=== PATIENT | male | born 1955 | race African-American/Black ===

== ENCOUNTER 2019-02-28 06:17 | Inpatient (IN) | payer MEDICARE, MEDICAID ==
--- NOTE | 2019-02-28 13:32 | HP ---
CHIEF COMPLAINT: [facility]. HISTORY OF PRESENT ILLNESS: Mr. Hernandez is a 63-year-old gentleman, who has a history of mental retardation and resides in a nursing facility. He is essentially nonverbal at baseline and does have some contractures as well. The history is extremely limited, but apparently he was found unresponsive and was noted to have seizure-like activity at the nursing facility. He was reported he had three seizures, which were about 20 to 30 seconds, then also an additional seizure was witnessed by EMS. He was brought to the emergency room and a CT scan of the brain was performed and it did not show any acute abnormality, but on chest x-ray he had some findings in the right lung which could be considered to be an infiltrate or atelectasis. He was also hypothermic and his white blood cell count is elevated. Urinalysis also showed findings consistent with urinary tract infection. He is being admitted for further treatment. REVIEW OF SYSTEMS: Unobtainable as the patient is aphasic. He is awake and alert, however. PAST MEDICAL HISTORY: Significant for mental retardation and chronic anemia. PAST SURGICAL HISTORY: Unknown. ALLERGIES: ALSO UNKNOWN. SOCIAL HISTORY: Unknown and unobtainable. FAMILY HISTORY: Also unknown and unobtainable. MEDICATIONS: Also unknown. PHYSICAL EXAMINATION: GENERAL: He is again alert, but unable to assess orientation. He is aphasic. His he is well developed, but he does have significant upper and lower extremity contractures. VITAL SIGNS: Blood pressure is ranging from 74 to 99 systolic, heart rate in the 90s, respiratory rate of 18, temperature is 94.6. HEENT: His pupils are equal, round, and reactive. Extraocular muscles are intact. Sclerae anicteric. Throat, he has dry mucous membranes. He is edentulous. NECK: There is no adenopathy. No bruits. LUNGS: He has coarse breath sounds bilaterally. No wheezing. No rales. No rhonchi. CARDIOVASCULAR: He has a normal S1, S2. I did not appreciate an S3 or S4. No murmurs, clicks, or rubs. ABDOMEN: Soft. Positive for bowel sounds. EXTREMITIES: On his extremities, he has contractures of both the upper and lower extremities and some evidence of mild muscle wasting. There is no edema and no joint effusions. NEUROLOGIC: He is very difficult to assess, but he appears to be moving all extremities. SKIN AND INTEGUMENT: There is no skin breakdown, no rashes. LABORATORY DATA: The white blood cell count is 13, hemoglobin 11.2, hematocrit is 37, platelet count is 172. The sodium is 139, potassium 3.9, chloride is 102, CO2 is 29, BUN of 25, creatinine 0.73, glucose is 103. Lactic acid was 2.5. Urinalysis, he has trace blood. There is positive nitrites, 4+ bacteria. As previously mentioned, CT scan of the brain showed no acute intracranial abnormality. He had a chest x-ray and heart size was normal. He had some evidence of patchy infiltrate in the right lung, primarily in the lower to middle lobe. There is no evidence of significant effusion. ASSESSMENT: This is a 63-year-old gentleman, who [facility]. He is basically aphasic. He has evidence of a new onset seizure. He has been loaded with fosphenytoin at the outside ER and currently appears to be seizure free. We will place him on IV Keppra and consult Neurology for further recommendations. 1. Probable aspiration pneumonia. Given that he had a seizure, it is very likely that he may have suffered an aspiration. We will place him on Zosyn for coverage of this. Blood cultures have also been done as well and these will need to be followed up on. 2. Urinary tract infection. Again, he will be placed on empiric antibiotics. Urine cultures will be done and we will tailor antibiotics based on the urine culture results. 3. We will need to try to find family members to discuss his advanced directives. Given his multiple contractures and now recent seizures, it is possible that his prognosis may not be that good and we would like for family to be aware of this going forward. Job ID: [id number]
[2019-02-28] MEDS ORDERED: Dextrose 5 % And 0.9 % NaCl 1,000 ML IV SCH (15:45)
[2019-02-28] MEDS ORDERED: Acetaminophen 325 MG TAB PO PRN (15:54)
[2019-02-28] MEDS ORDERED: Lorazepam 2 MG/ML VIAL SLOW IVP PRN (15:54)
[2019-02-28] MEDS ORDERED: Enoxaparin Sodium 40 MG/0.4 ML SYRINGE SC SCH (16:00)
[2019-02-28] MEDS: Sodium Chloride 0.9% 1,000 ML IV SCH (17:24)
[2019-02-28] MEDS: Piperacillin/Tazobactam 3.375 GM in Sodium Chloride 0.9% 100 ML IVPB SCH (17:24)
--- NOTE | 2019-02-28 20:32 | CON ---
DATE OF CONSULTATION: 02/28/2019 CONSULTING PHYSICIAN: Hospitalist Service. IMPRESSION: Seizure secondary to ongoing infection. PLAN: Continue Keppra. HISTORY OF PRESENT ILLNESS: Mr. Hernandez is a 63-year-old man who came from the [facility]. He is severely debilitated and contracted, nonverbal. He apparently had what appeared to be a seizure and was transferred here. He has evidence of ongoing infection. He has been started on antibiotics. His EEG shows a seizure focus in the left central parietal region, but otherwise he is not having any seizure activity. PAST MEDICAL HISTORY: Otherwise unknown. FAMILY HISTORY: Not obtainable. REVIEW OF SYSTEMS: Not obtainable. MEDICATIONS: Reviewed. PHYSICAL EXAMINATION: GENERAL: He is a tall thin elderly man, who is contracted in all 4 extremities. HEENT: Pupils are equal. Conjunctivae clear. NECK: No lymphadenopathy. NEURO: He has no spontaneous movements. No abnormal movements were seen. IMAGING: CT scan of the brain was unremarkable. LABORATORY DATA: His routine lab work otherwise did not show any metabolic abnormalities. SUMMARY: This is an elderly man with a history of seizures, who presents with recurrent seizure as well as an ongoing infection. Do not see any need for a change in treatment at this point. Job ID: [id number]
[2019-02-28] MEDS: Sodium Chloride 0.9% 500 ML IV SCH (20:46)
[2019-02-28] MEDS ORDERED: levETIRAcetam 500 MG TAB PO SCH (21:00)
[2019-02-28] MEDS ORDERED: Sodium Chloride 0.9% 1,000 ML IV PRN (21:52)
[2019-02-28] MEDS: Famotidine 20 MG TAB PO SCH (21:58)
[2019-02-28] MEDS ORDERED: Sodium Chloride 0.9% 1,000 ML IV SCH (22:00)
[2019-02-28] MEDS ORDERED: Sodium Chloride 0.9% 500 ML IV SCH (22:00)
[2019-02-28 22:03] LABS: Lactic Acid 0.7 mmol/L (0.5-2.2)
[2019-02-28 22:08] LABS: Anion Gap 8 mmol/L (10-20); BUN (Urea Nitrogen) 20 mg/dL (8.4-25.7); Calc. Creatinine Clearance 103 mL/min (70-130); Calcium 8.1 mg/dL (7.8-10.44); Carbon Dioxide 27 mmol/L (23-31); Chloride 105 mmol/L (98-107); Estimated GFR-MDRD Greater than 90; Glucose 72 mg/dL (80-115); Magnesium 1.9 mg/dL (1.6-2.6); Potassium 3.5 mmol/L (3.5-5.1); Sodium 136 mmol/L (136-145)
[2019-02-28 22:46] LABS: #Lymphocytes 1.5 thou/uL (1.20-3.40); #Monocytes 0.3 thou/uL (0.11-0.59); #Neutrophils 10.4 thou/uL (1.40-6.50); %Eosinophils 0.1 % (0.0-10.0); %Lymphocytes 12.5 % (21.0-51.0); %Monocytes 2.4 % (0.0-10.0); %Neutrophils 84.9 % (42.0-75.0); Hemoglobin 8.8 g/dL (14.0-18.0); Large Platelets SLIGHT; MDiff Complete? YES; Mean Corpuscular HGB CONC 32.1 g/dL (32.0-36.0); Mean Corpuscular Hemoglobin 27.8 pg (27.0-31.0); Mean Corpuscular Volume 86.6 fL (78.0-98.0); Platelet Count 116 thou/uL (130-400); Platelet Morphology Comment Appears Decreased; RBC Distribution Width 13.8 % (11.5-14.5); Red Blood Cell (RBC) Count 3.15 mill/uL (4.70-6.10); White Blood Cell (WBC) Count 12.3 thou/uL (4.8-10.8)
[2019-03-01] MEDS: Piperacillin/Tazobactam 3.375 GM in Sodium Chloride 0.9% 100 ML IVPB SCH ×4 (00:20→18:16)
[2019-03-01] MEDS: Sodium Chloride 0.9% 1,000 ML IV SCH ×2 (00:20→13:01)
[2019-03-01 05:11] LABS: #Basophils 0.1 thou/uL (0.0-0.2); #Lymphocytes 1.3 thou/uL (1.20-3.40); #Monocytes 0.3 thou/uL (0.11-0.59); #Neutrophils 8.7 thou/uL (1.40-6.50); %Basophils 0.6 % (0.0-1.0); %Eosinophils 0.4 % (0.0-10.0); %Lymphocytes 12.2 % (21.0-51.0); %Monocytes 3.1 % (0.0-10.0); %Neutrophils 83.6 % (42.0-75.0); Hemoglobin 8.4 g/dL (14.0-18.0); Mean Corpuscular HGB CONC 33.1 g/dL (32.0-36.0); Mean Corpuscular Hemoglobin 28.7 pg (27.0-31.0); Mean Corpuscular Volume 86.9 fL (78.0-98.0); Mean Platelet Volume 10.4 fL (7.4-10.4); Platelet Count 108 thou/uL (130-400); RBC Distribution Width 13.7 % (11.5-14.5); Red Blood Cell (RBC) Count 2.93 mill/uL (4.70-6.10); White Blood Cell (WBC) Count 10.4 thou/uL (4.8-10.8)
[2019-03-01 05:17] LABS: Anion Gap 8 mmol/L (10-20); BUN (Urea Nitrogen) 16 mg/dL (8.4-25.7); Calc. Creatinine Clearance 104 mL/min (70-130); Calcium 7.9 mg/dL (7.8-10.44); Carbon Dioxide 25 mmol/L (23-31); Chloride 109 mmol/L (98-107); Estimated GFR-MDRD Greater than 90; Glucose 66 mg/dL (80-115); Potassium 3.2 mmol/L (3.5-5.1); Sodium 139 mmol/L (136-145)
[2019-03-01] MEDS: Famotidine 20 MG TAB PO SCH ×2 (09:02→22:19)
[2019-03-01] MEDS: Enoxaparin Sodium 40 MG/0.4 ML SYRINGE SC SCH (09:15)
--- NOTE | 2019-03-01 09:34 | PDOC.HOSPP ---
- Subjective Encounter Date: 03/01/19 Encounter Time: 09:33 Subjective: Mr. Hernandez was seen today in follow-up of seizures. He was moved to the ICU due to a low blood pressure, however he has significant limb discrepancy, with arm reading about 50mmHg higher than the other. It is now being checked in his leg, with adequate readings. - Objective Vital Signs & Weight: Vital Signs (12 hours) Temp Pulse Ox 03/01/19 08:00 97.6 F 03/01/19 04:00 98.2 F 03/01/19 01:00 97.5 F L 03/01/19 00:00 95.3 F L 02/28/19 23:00 94.5 F L 98 Weight Weight 141 lb 1.533 oz Most Recent Monitor Data Heart Rate from ECG 75 NIBP 111/59 NIBP BP-Mean 76 Respiration from ECG 12 SpO2 100 I&O: 02/28/19 03/01/19 03/02/19 06:59 06:59 06:59 Intake Total 3449 Output Total 1875 70 Balance 1574 -70 Result Diagrams: 03/01/19 04:41 03/01/19 04:41 Hospitalist ROS - Medication Medications: Active Medications Generic Name Dose Route Start Last Admin Trade Name Freq PRN Reason Stop Dose Admin Enoxaparin Sodium 40 mg 03/01/19 09:00 03/01/19 09:15 Lovenox SC 40 mg 0900 FRANCHESCA Administration Famotidine 20 mg 02/28/19 21:00 02/28/19 21:58 Pepcid PO Not Given BID FRANCHESCA Piperacillin Sod/Tazobactam 100 mls @ 200 mls/hr 02/28/19 18:00 03/01/19 05: 35 Sod 3.375 gm/ Sodium Chloride IVPB 100 mls Q6HR FRANCHESCA Administration Sodium Chloride 1,000 mls @ 100 mls/hr 02/28/19 15:54 03/01/19 00:20 Normal Saline 0.9% IV 1,000 mls .Q10H FRANCHESCA Administration Levetiracetam 500 mg/ Device 100 mls @ 200 mls/hr 02/28/19 21:00 03/01/19 09: 16 IVPB 100 mls BID FRANCHESCA Administration - Exam Eye: PERRL Heart: RRR, no murmur, no gallops, no rubs, normal peripheral pulses Respiratory: CTAB, no wheezes, no rales, no ronchi, normal chest expansion, no tachypnea, normal percussion Gastrointestinal: soft, non-tender, non-distended, normal bowel sounds, no palpable masses, no hepatomegaly Extremities: no cyanosis, no edema Musculoskeletal: diffuse muscle atrophy (+ contractures in both upper and lower extremities) Hosp A/P (1) Seizure disorder Code(s): G40.909 - EPILEPSY, UNSP, NOT INTRACTABLE, WITHOUT STATUS EPILEPTICUS Status: Acute (2) UTI (urinary tract infection) Status: Acute (3) Aspiration pneumonia Code(s): J69.0 - PNEUMONITIS DUE TO INHALATION OF FOOD AND VOMIT Status: Acute (4) Mental retardation Code(s): F79 - UNSPECIFIED INTELLECTUAL DISABILITIES Status: Chronic - Plan * Seizure disorder- patient apparently prior history of seizures * Seizure threshold was lowered due to UTI and pneumonia * UTI- urine culture is growing gram negative rods- identification is pending * Continue Zosyn for both UTI, and Aspiration * Speech Therapy evaluation is pending * Back to [place], once organism is identified, with results of the cultures, and he has been cleared to swallow * He can be moved out of the ICU
[2019-03-01] MEDS ORDERED: Sodium Chloride 0.9% 500 ML IV SCH ×2 (21:15→23:30)
[2019-03-01] MEDS: Sodium Chloride 0.9% 500 ML IV SCH (22:11)
[2019-03-02] MEDS: Piperacillin/Tazobactam 3.375 GM in Sodium Chloride 0.9% 100 ML IVPB SCH ×3 (01:40→11:36)
[2019-03-02] MEDS: Sodium Chloride 0.9% 1,000 ML IV SCH (05:36)
[2019-03-02] MEDS: Enoxaparin Sodium 40 MG/0.4 ML SYRINGE SC SCH (08:15)
[2019-03-02] MEDS: Famotidine 20 MG TAB PO SCH ×2 (08:15→20:29)
[2019-03-02 09:39] LABS: Iron 32 ug/dL (65-175); Iron Binding Capacity, Total 148 mcg/dL (261-462)
[2019-03-02 09:41] LABS: Anion Gap 14 mmol/L (10-20); BUN (Urea Nitrogen) 11 mg/dL (8.4-25.7); Calc. Creatinine Clearance 129 mL/min (70-130); Carbon Dioxide 21 mmol/L (23-31); Chloride 105 mmol/L (98-107); Estimated GFR-MDRD Greater than 90; Iron 31 ug/dL (65-175); Iron Binding Capacity, Total 148 mcg/dL (261-462); Sodium 137 mmol/L (136-145)
[2019-03-02 09:46] LABS: Glucose 15 mg/dL (80-115)
[2019-03-02] MEDS ORDERED: Dextrose 50 % In Water 50 ML SYRINGE IV SCH (09:48)
[2019-03-02] MEDS ORDERED: Dextrose 50 % In Water 50 ML SYRINGE ONE ×2 (09:50→17:19)
[2019-03-02] MEDS ORDERED: Dextrose 10% in Water 1,000 ML IV SCH (10:00)
[2019-03-02 10:05] LABS: Ferritin 400.25 ng/mL (22-322); Free T4 (Free Thyroxine) 0.55 ng/dL (0.70-1.48); Thyroid Stimulating Hormone 1.2092 uIU/mL (0.35-4.94)
[2019-03-02 10:56] LABS: Band 7 % (5-11); Eosinophils 1 % (0-10); Hemoglobin 9.2 g/dL (14.0-18.0); Large Platelets SLIGHT; Lymphocytes 13 % (21-51); MDiff Complete? YES; Mean Corpuscular HGB CONC 31.7 g/dL (32.0-36.0); Mean Corpuscular Volume 88.5 fL (78.0-98.0); Mean Platelet Volume 10.5 fL (7.4-10.4); Neutrophil 79 % (42-75); Platelet Count 112 thou/uL (130-400); Platelet Morphology Comment Appears Decreased; RBC Distribution Width 13.9 % (11.5-14.5); Red Blood Cell (RBC) Count 3.28 mill/uL (4.70-6.10); White Blood Cell (WBC) Count 7.6 thou/uL (4.8-10.8)
--- NOTE | 2019-03-02 14:16 | PDOC.HOSPP ---
- Subjective Encounter Date: 03/02/19 Encounter Time: 10:30 Subjective: not in distress, does not respond to verbal stimuli per staff moans and opens eyes no seizures on stroke floor - Objective Vital Signs & Weight: Vital Signs (12 hours) Temp Pulse Resp BP BP Pulse Ox 03/02/19 11:30 97.2 F L 83 16 104/49 L 97 03/02/19 10:04 94.7 F L 03/02/19 08:04 94.3 F L 100 03/02/19 07:28 69 20 97/62 100 03/02/19 06:05 106/48 L 03/02/19 03:49 97.2 F L 60 16 82/55 L 97 Weight Admit Weight 138 lb 1.6 oz Weight 151 lb Most Recent Monitor Data Heart Rate from ECG 67 NIBP 111/59 NIBP BP-Mean 76 Respiration from ECG 12 SpO2 95 I&O: 03/01/19 03/02/19 03/03/19 06:59 06:59 06:59 Intake Total 3449 2900 Output Total 1875 1780 Balance 1574 1120 Result Diagrams: 03/02/19 09:04 03/02/19 09:04 Additional Labs: Accuchecks 03/02/19 03/02/19 03/02/19 12:20 10:04 09:51 POC Glucose 132 H 337 H Less than 35 L* Hospitalist ROS - Medication Medications: Active Medications Generic Name Dose Route Start Last Admin Trade Name Freq PRN Reason Stop Dose Admin Enoxaparin Sodium 40 mg 03/01/19 09:00 03/02/19 08:15 Lovenox SC 40 mg 0900 FRANCHESCA Administration Famotidine 20 mg 02/28/19 21:00 03/02/19 08:15 Pepcid PO Not Given BID FRANCHESCA Piperacillin Sod/Tazobactam 100 mls @ 200 mls/hr 02/28/19 18:00 03/02/19 11: 36 Sod 3.375 gm/ Sodium Chloride IVPB 100 mls Q6HR FRANCHESCA Administration Levetiracetam 500 mg/ Device 100 mls @ 200 mls/hr 02/28/19 21:00 03/02/19 08: 15 IVPB 100 mls BID FRANCHESCA Administration Dextrose/Water 1,000 mls @ 75 mls/hr 03/02/19 10:00 03/02/19 10:20 Dextrose 10% In Water IV 1,000 mls .[id number] FRANCHESCA Administration - Exam General Appearance: ill appearing Eye: anicteric sclera ENT: no oropharyngeal lesions, moist mucosa Neck: supple, no JVD Heart: RRR, no murmur Respiratory: no wheezes, no rales Gastrointestinal: soft, non-tender, non-distended, normal bowel sounds Extremities: no cyanosis, no edema Neurological: no focal deficits Hosp A/P (1) Breakthrough seizure Code(s): G40.919 - EPILEPSY, UNSP, INTRACTABLE, WITHOUT STATUS EPILEPTICUS Status: Acute (2) Hypothermia Code(s): T68.XXXA - HYPOTHERMIA, INITIAL ENCOUNTER Status: Acute Qualifiers: Encounter type: subsequent encounter Qualified Code(s): T68.XXXD - Hypothermia, subsequent encounter Plan: sec to infection? (3) Aspiration pneumonia Code(s): J69.0 - PNEUMONITIS DUE TO INHALATION OF FOOD AND VOMIT Status: Acute Qualifiers: Aspiration pneumonia type: unspecified (4) Seizure disorder Code(s): G40.909 - EPILEPSY, UNSP, NOT INTRACTABLE, WITHOUT STATUS EPILEPTICUS Status: Chronic (5) UTI (urinary tract infection) Status: Acute Qualifiers: Urinary tract infection type: acute cystitis Hematuria presence: without hematuria Qualified Code(s): N30.00 - Acute cystitis without hematuria (6) Altered mental status Code(s): R41.82 - ALTERED MENTAL STATUS, UNSPECIFIED Status: Acute (7) Mental retardation Code(s): F79 - UNSPECIFIED INTELLECTUAL DISABILITIES Status: Chronic (8) Normocytic anemia Code(s): D64.9 - ANEMIA, UNSPECIFIED Status: Chronic (9) Hypoglycemia Code(s): E16.2 - HYPOGLYCEMIA, UNSPECIFIED Status: Acute - Plan still encephalopathic sec to initial seizures on/prior to arrival on keppra iv , zosyn for uti (e.coli sensitive to all antibiotics except macrobid) and pna unable to reach family per [facility] consultation for code status and goals of care pt is a [facility] resident continue D10 drip for hypoglycemia, bear hugger for hypothermia small dose iv levothyroixine for subclinical hypothyroidism? with current clinical features will obtain blood cultures as well
[2019-03-02] MEDS ORDERED: Levothyroxine 100 MCG SDV IVP STA (14:53)
[2019-03-02] MEDS: Potassium Chloride 20 MEQ in Premix Bag 1 BAG IVPB SCH ×2 (15:25→21:02)
[2019-03-02] MEDS ORDERED: Dextrose 50% Abboject 50 ML SYRINGE SLOW IVP PRN (17:04)
[2019-03-02] MEDS ORDERED: Dextrose 5% in Water 1,000 ML IV PRN (17:04)
[2019-03-02] MEDS ORDERED: Bisacodyl 10 MG SUPP PR PRN (17:25)
[2019-03-02] MEDS ORDERED: Fleet Enema 133 ML BOT PR PRN (17:25)
[2019-03-02] MEDS ORDERED: WATER IV SCH (18:15)
[2019-03-02] MEDS ORDERED: STERILE WATER IV SCH (18:15)
[2019-03-02] MEDS ORDERED: DEXTROSE IV SCH (18:15)
[2019-03-02 18:23] LABS: Lactic Acid 0.9 mmol/L (0.5-2.2)
[2019-03-02 18:29] LABS: Anion Gap 10 mmol/L (10-20); BUN (Urea Nitrogen) 8 mg/dL (8.4-25.7); CK (CPK) 344 U/L (30-200); Calc. Creatinine Clearance 108 mL/min (70-130); Calcium 7.9 mg/dL (7.8-10.44); Carbon Dioxide 25 mmol/L (23-31); Chloride 104 mmol/L (98-107); Estimated GFR-MDRD Greater than 90; Glucose 160 mg/dL (80-115); Magnesium 1.8 mg/dL (1.6-2.6); Potassium 3.2 mmol/L (3.5-5.1); Sodium 136 mmol/L (136-145)
[2019-03-02 18:31] LABS: Phosphorus 1.9 mg/dL (2.3-4.7)
[2019-03-02] MEDS: DEXTROSE IV SCH (18:58)
[2019-03-02] MEDS: WATER IV SCH (18:58)
[2019-03-02] MEDS: STERILE WATER IV SCH (18:58)
[2019-03-02] MEDS: Vancomycin HCl 1.25 GM in Sodium Chloride 0.9% 250 ML 250 ML IVPB SCH (20:30)
[2019-03-02] MEDS ORDERED: CCU Electrolyte Replacement 1 EACH FS SCH (20:49)
[2019-03-02] MEDS ORDERED: Potassium Chloride 40 MEQ in Premix Bag 1 BAG IVPB PRN (20:53)
[2019-03-02] MEDS ORDERED: Potassium Phosphate 9 MMOL in Sodium Chloride 0.9% 100 ML IVPB PRN (20:53)
[2019-03-02] MEDS ORDERED: Magnesium Oxide 400 MG TAB PO PRN ×2 (20:53)
[2019-03-02] MEDS ORDERED: PHOS-NAK 1 PKT PACK PO PRN ×2 (20:53)
[2019-03-02] MEDS ORDERED: Magnesium 2 GM/50 ML 2 GM in Premix Bag 1 BAG IVPB PRN (20:53)
[2019-03-02] MEDS ORDERED: Potassium Phosphate 15 MMOL in Sodium Chloride 0.9% 250 ML 250 ML IV PRN (20:53)
[2019-03-02] MEDS ORDERED: Potassium Chloride 20 MEQ TAB PO PRN (20:53)
[2019-03-02] MEDS ORDERED: Potassium Phosphate 12 MMOL in Sodium Chloride 0.9% 250 ML 250 ML IV PRN (20:53)
[2019-03-02] MEDS ORDERED: Potassium Chloride 40 MEQ in Sodium Chloride 0.9% 250 ML 250 ML IVPB PRN (20:53)
[2019-03-02] MEDS ORDERED: CCU ELECTROLYTE REPLACEMENT PROTOCOL FS PRN (20:53)
[2019-03-02] MEDS ORDERED: Vancomycin HCl 1 GM in Premix Bag 1 BAG IVPB SCH (21:00)
--- NOTE | 2019-03-02 21:39 | CT ---
CT Chest Abd Pelvis W Con HISTORY: Altered mental status. Sepsis. Evaluation for source. COMPARISON: 10/22/2015 study. FINDINGS: The patient is curled in a position. There are infiltrative appearing lung changes in the right upper lobe. Also some infiltrative change within the right base versus atelectasis with a small right effusion. Very minimal pneumonitis changes are seen in the left midlung field. There is no significant mediastinal or hilar adenopathy. CT of abdomen performed with contrast enhancement: Small amount of fluid is seen along the liver sonido in. The liver spleen and pancreas regions appear unremarkable. Gallbladder shows some subtle increased attenuation, I cannot exclude small stones. Right and left adrenal glands are difficult to visualize. Right and left kidneys are normal in size a nd not obstructed. Small left renal cyst is identified. No significant periaortic adenopathy. A moderate amount of stool is present within the colon. CT of pelvis performed with contrast: The bladder is distended. No significant adenopathy or mass dem onstrated. IMPRESSION: 1. Right upper lobe infiltrative lung changes with atelectasis or developing infiltrate in the right base and some minimal pneumonitis changes in the left midlung field. 2. Moderate amount of stool throughout the colon. 3. Subtle increased attenuation within the gallbladder lumen, I can't exclude small stones. 4. Small pleural effusion and minimal ascites.
[2019-03-02] MEDS: methylPREDNISolone Sod Succ 40 MG VIAL IVP SCH (22:19)
[2019-03-02] MEDS: Latanoprost 0.005% Ophth Soln 2.5 ml Bottle EA EYE SCH (22:19)
[2019-03-02] MEDS: MEROPENEM 1 GM/50 ML 1 GM in Premix Bag 1 BAG IVPB SCH (22:20)
[2019-03-02] MEDS: DorzolamidE/Timolol 2%/0.5% Ophth Soln 10 ml Bottle EA EYE SCH (22:20)
[2019-03-03 03:53] LABS: #Lymphocytes 0.4 thou/uL (1.20-3.40); #Monocytes 0.1 thou/uL (0.11-0.59); #Neutrophils 6.2 thou/uL (1.40-6.50); %Basophils 0.2 % (0.0-1.0); %Eosinophils 0.1 % (0.0-10.0); %Lymphocytes 6.3 % (21.0-51.0); %Monocytes 1.4 % (0.0-10.0); %Neutrophils 92.1 % (42.0-75.0); Hemoglobin 10.2 g/dL (14.0-18.0); Mean Corpuscular HGB CONC 32.2 g/dL (32.0-36.0); Mean Corpuscular Hemoglobin 27.8 pg (27.0-31.0); Mean Corpuscular Volume 86.6 fL (78.0-98.0); Mean Platelet Volume 10.1 fL (7.4-10.4); Platelet Count 135 thou/uL (130-400); RBC Distribution Width 13.9 % (11.5-14.5); Red Blood Cell (RBC) Count 3.68 mill/uL (4.70-6.10); White Blood Cell (WBC) Count 6.8 thou/uL (4.8-10.8)
[2019-03-03 04:11] LABS: Anion Gap 11 mmol/L (10-20); BUN (Urea Nitrogen) 5 mg/dL (8.4-25.7); Calc. Creatinine Clearance 105 mL/min (70-130); Calcium 8.6 mg/dL (7.8-10.44); Carbon Dioxide 25 mmol/L (23-31); Chloride 104 mmol/L (98-107); Estimated GFR-MDRD Greater than 90; Glucose 235 mg/dL (80-115); Potassium 3.7 mmol/L (3.5-5.1); Sodium 136 mmol/L (136-145)
[2019-03-03] MEDS: MEROPENEM 1 GM/50 ML 1 GM in Premix Bag 1 BAG IVPB SCH ×3 (05:50→22:04)
[2019-03-03] MEDS: methylPREDNISolone Sod Succ 40 MG VIAL IVP SCH (05:50)
[2019-03-03] MEDS: Enoxaparin Sodium 40 MG/0.4 ML SYRINGE SC SCH (10:33)
[2019-03-03] MEDS: DorzolamidE/Timolol 2%/0.5% Ophth Soln 10 ml Bottle EA EYE SCH ×2 (10:33→20:06)
[2019-03-03] MEDS: DEXTROSE IV SCH ×2 (10:35→12:55)
[2019-03-03] MEDS: WATER IV SCH ×2 (10:35→12:55)
[2019-03-03] MEDS: STERILE WATER IV SCH ×2 (10:35→12:55)
[2019-03-03] MEDS: Famotidine 20 MG TAB PO SCH ×3 (10:36→20:07)
[2019-03-03] MEDS: Vancomycin HCl 1.25 GM in Sodium Chloride 0.9% 250 ML 250 ML IVPB SCH ×2 (12:45→20:06)
--- NOTE | 2019-03-03 13:54 | PDOC.HOSPP ---
- Subjective Encounter Date: 03/03/19 Encounter Time: 12:50 Subjective: waking up, opens eyes to verbal stimuli says hello but no more than that - Objective Vital Signs & Weight: Vital Signs (12 hours) Temp Pulse Ox 03/03/19 10:23 97.8 F 03/03/19 08:00 100 03/03/19 07:15 97.4 F L 03/03/19 03:05 97.6 F Weight Admit Weight 138 lb 1.6 oz Weight 138 lb 9 oz Most Recent Monitor Data Heart Rate from ECG 71 NIBP 93/64 NIBP BP-Mean 73 Respiration from ECG 14 SpO2 93 I&O: 03/02/19 03/03/19 03/04/19 06:59 06:59 06:59 Intake Total 2900 1065 Output Total 1780 3800 Balance 1120 -5653 Result Diagrams: 03/03/19 03:22 03/03/19 03:22 Additional Labs: Accuchecks 03/03/19 03/03/19 03/03/19 12:03 09:51 08:21 POC Glucose 122 H 206 H 217 H 03/03/19 03/03/19 03/03/19 05:51 04:07 01:56 POC Glucose 245 H 233 H 203 H 03/03/19 03/02/19 03/02/19 00:01 22:15 20:00 POC Glucose 121 H 71 152 H 03/02/19 03/02/19 17:50 16:48 POC Glucose 175 H 56 L* Hospitalist ROS - Medication Medications: Active Medications Generic Name Dose Route Start Last Admin Trade Name Freq PRN Reason Stop Dose Admin Dorzolamide/Timolol 0 drop 03/02/19 21:00 03/03/19 10:33 Cosopt 2-0.5% Ophth Soln EA EYE 1 drop BID FRANCHESAC Administration Enoxaparin Sodium 40 mg 03/01/19 09:00 03/03/19 10:33 Lovenox SC 40 mg 0900 FRANCHESCA Administration Famotidine 20 mg 02/28/19 21:00 03/03/19 10:36 Pepcid PO Not Given BID FRANCHESCA Levetiracetam 500 mg/ Device 100 mls @ 200 mls/hr 02/28/19 21:00 03/03/19 10: 33 IVPB 100 mls BID FRANCHESCA Administration Meropenem 1 gm/ Device 50 mls @ 100 mls/hr 03/02/19 22:00 03/03/19 05:50 IVPB 50 mls Q8HR FRANCHESCA Administration Miscellaneous Medication 1 1,000 mls @ 75 mls/hr 03/02/19 18:45 03/03/19 12: 55 each/ Sterile Water/ Dextrose/ IV 1,000 mls Water .[id number] FRANCHESCA Administration Vancomycin HCl 1.25 gm/ Sodium 250 mls @ 166.667 mls/hr 03/02/19 20:00 12:45 Chloride IVPB 250 mls 0800,2000 FRANCHESCA Administration Latanoprost 1 drop 03/02/19 21:00 03/02/19 22:19 Xalatan 0.005% Ophth Soln EA EYE 1 drop HS FRANCHESCA Administration - Exam Eye: PERRL, anicteric sclera ENT: no oropharyngeal lesions, dry oral mucosa Neck: supple, no JVD Heart: RRR, no murmur Respiratory: no wheezes, no rales Gastrointestinal: soft, non-tender, non-distended, normal bowel sounds Extremities: no cyanosis, no edema Extremities - other findings: flexion contractures of extremities Neurological: no focal deficits Hosp A/P (1) Seizure disorder Code(s): G40.909 - EPILEPSY, UNSP, NOT INTRACTABLE, WITHOUT STATUS EPILEPTICUS Status: Acute (2) Hypothermia Code(s): T68.XXXA - HYPOTHERMIA, INITIAL ENCOUNTER Status: Resolved Qualifiers: Encounter type: subsequent encounter Qualified Code(s): T68.XXXD - Hypothermia, subsequent encounter (3) Aspiration pneumonia Code(s): J69.0 - PNEUMONITIS DUE TO INHALATION OF FOOD AND VOMIT Status: Acute Qualifiers: Aspiration pneumonia type: unspecified (4) UTI (urinary tract infection) Status: Acute Qualifiers: Urinary tract infection type: acute cystitis Hematuria presence: without hematuria Qualified Code(s): N30.00 - Acute cystitis without hematuria (5) Altered mental status Code(s): R41.82 - ALTERED MENTAL STATUS, UNSPECIFIED Status: Resolved (6) Mental retardation Code(s): F79 - UNSPECIFIED INTELLECTUAL DISABILITIES Status: Chronic (7) Normocytic anemia Code(s): D64.9 - ANEMIA, UNSPECIFIED Status: Chronic (8) Hypoglycemia Code(s): E16.2 - HYPOGLYCEMIA, UNSPECIFIED Status: Acute - Plan still encephalopathic sec to initial seizures on/prior to arrival. D/w Ms.Brenda Olvin VARGAS and cousin of patient, he likely is at his baseline with barely speaking few words at snf he eats [facility] soft diet at snf on keppra iv , vanc and merrem. Will scale it back once cultures are -ve, dc steroids. Is DNAR, d/w Ms.Brenda Olvin vargas over phone. His parents are , has a living brother who is in [facility] and has intellectual disability per . pt is a snf resident continue D20 drip for hypoglycemia Oral diet to be started if cleared by speech, if not start NG feeding and dc D20 drip DC GI consult, pt is waking up now, may not need peg if he is able to start eating.
[2019-03-03] MEDS: Latanoprost 0.005% Ophth Soln 2.5 ml Bottle EA EYE SCH (20:06)
[2019-03-04] MEDS: STERILE WATER IV SCH (02:14)
[2019-03-04] MEDS: WATER IV SCH (02:14)
[2019-03-04] MEDS: DEXTROSE IV SCH (02:14)
[2019-03-04] MEDS: MEROPENEM 1 GM/50 ML 1 GM in Premix Bag 1 BAG IVPB SCH ×3 (05:14→22:20)
[2019-03-04 07:59] LABS: Anion Gap 10 mmol/L (10-20); BUN (Urea Nitrogen) 5 mg/dL (8.4-25.7); Calc. Creatinine Clearance 105 mL/min (70-130); Calcium 8.2 mg/dL (7.8-10.44); Carbon Dioxide 29 mmol/L (23-31); Chloride 105 mmol/L (98-107); Estimated GFR-MDRD Greater than 90; Glucose 114 mg/dL (80-115); Sodium 141 mmol/L (136-145)
[2019-03-04 08:01] LABS: Potassium 2.8 mmol/L (3.5-5.1)
[2019-03-04 08:21] LABS: #Eosinphils 0.1 thou/uL (0.0-0.7); #Lymphocytes 2.4 thou/uL (1.20-3.40); #Monocytes 0.4 thou/uL (0.11-0.59); #Neutrophils 3.4 thou/uL (1.40-6.50); %Basophils 0.7 % (0.0-1.0); %Eosinophils 1.3 % (0.0-10.0); %Lymphocytes 37.3 % (21.0-51.0); %Monocytes 6.8 % (0.0-10.0); %Neutrophils 53.9 % (42.0-75.0); Hemoglobin 8.6 g/dL (14.0-18.0); Mean Corpuscular HGB CONC 32.6 g/dL (32.0-36.0); Mean Corpuscular Hemoglobin 28.3 pg (27.0-31.0); Mean Corpuscular Volume 86.8 fL (78.0-98.0); Mean Platelet Volume 9.5 fL (7.4-10.4); Platelet Count 138 thou/uL (130-400); RBC Distribution Width 13.9 % (11.5-14.5); Red Blood Cell (RBC) Count 3.04 mill/uL (4.70-6.10); White Blood Cell (WBC) Count 6.4 thou/uL (4.8-10.8)
[2019-03-04] MEDS: Famotidine 20 MG TAB PO SCH ×2 (09:48→20:17)
[2019-03-04] MEDS: Enoxaparin Sodium 40 MG/0.4 ML SYRINGE SC SCH (09:49)
[2019-03-04] MEDS: DorzolamidE/Timolol 2%/0.5% Ophth Soln 10 ml Bottle EA EYE SCH ×2 (09:49→20:17)
--- NOTE | 2019-03-04 09:58 | PRG ---
DATE OF SERVICE: 03/04/2019 SUBJECTIVE: The patient is lying in bed, in no acute distress. He can communicate. OBJECTIVE: VITAL SIGNS: Temperature is 97.7, pulse 78, blood pressure 104/66, O2 saturation 100%. HEENT: Unremarkable. NECK: No JVD. LUNGS: Clear. CARDIAC: S1, S2. Regular. ABDOMEN: Soft. EXTREMITIES: Contracted. LABORATORY DATA: Sodium 141, potassium 2.8, BUN 5, creatinine 0.6, glucose 123. White blood cell count 6.4, hematocrit 26.3, and platelet count 138. ASSESSMENT: 1. Seizure disorder. 2. Aspiration pneumonia. 3. Mental retardation. PLAN: The patient is continuing his antibiotics. I am not sure what his baseline is in terms of his mental status. Agree with current antibiotic therapy. I think he is a candidate for transfer to the medical floor. Pulmonary will see as needed. Job ID: [id number]
--- NOTE | 2019-03-04 12:04 | PDOC.HOSPP ---
- Subjective Encounter Date: 03/04/19 Encounter Time: 11:30 Subjective: is awake and speaks a few words has been eating per staff - Objective Vital Signs & Weight: Vital Signs (12 hours) Temp Pulse Ox 03/04/19 11:07 96.7 F L 03/04/19 08:00 100 03/04/19 07:13 97.7 F 03/04/19 03:49 98.4 F Weight Admit Weight 138 lb 1.6 oz Weight 138 lb 2 oz Most Recent Monitor Data Heart Rate from ECG 72 NIBP 104/66 NIBP BP-Mean 78 Respiration from ECG 19 SpO2 100 I&O: 03/03/19 03/04/19 03/05/19 06:59 06:59 06:59 Intake Total 1065 1350 Output Total 3800 1500 Balance -2735 -150 Result Diagrams: 03/04/19 07:35 03/04/19 07:35 Additional Labs: Accuchecks 03/04/19 03/04/19 03/04/19 10:39 08:16 05:42 POC Glucose 70 123 H 119 H 03/04/19 03/04/19 03/04/19 04:15 02:02 00:06 POC Glucose 130 H 128 H 142 H 03/03/19 03/03/19 03/03/19 22:16 19:51 18:10 POC Glucose 61 L 136 H 157 H 03/03/19 03/03/19 03/03/19 15:52 14:05 12:03 POC Glucose 226 H 185 H 122 H Hospitalist ROS - Medication Medications: Active Medications Generic Name Dose Route Start Last Admin Trade Name Zaira PRN Reason Stop Dose Admin Dorzolamide/Timolol 0 drop 03/02/19 21:00 03/04/19 09:49 Cosopt 2-0.5% Ophth Soln EA EYE 1 drop BID FRANCHESCA Administration Enoxaparin Sodium 40 mg 03/01/19 09:00 03/04/19 09:49 Lovenox SC 40 mg 0900 FRANCHESCA Administration Famotidine 20 mg 02/28/19 21:00 03/04/19 09:48 Pepcid PO 20 mg BID FRANCHESCA Administration Levetiracetam 500 mg/ Device 100 mls @ 200 mls/hr 02/28/19 21:00 03/04/19 10: 51 IVPB 100 mls BID FRANCHESCA Administration Meropenem 1 gm/ Device 50 mls @ 100 mls/hr 03/02/19 22:00 03/04/19 05:14 IVPB 50 mls Q8HR FRANCHESCA Administration Latanoprost 1 drop 03/02/19 21:00 03/03/19 20:06 Xalatan 0.005% Ophth Soln EA EYE 1 drop HS FRANCHESCA Administration Potassium Chloride 40 meq 03/02/19 20:53 03/04/19 09:48 K-Dur PO 40 meq ASDIR PRN Administration FOR SERUM K+ 2.5 - 3.5 - Exam General Appearance: awake alert Eye: PERRL, anicteric sclera ENT: no oropharyngeal lesions, moist mucosa Neck: supple, no JVD Heart: RRR, no murmur Respiratory: no wheezes, no rales Gastrointestinal: soft, non-tender, non-distended, normal bowel sounds Extremities: no cyanosis, no edema Extremities - other findings: flexion contracture of extremities Neurological: cranial nerve grossly intact, no focal deficits Hosp A/P (1) Seizure disorder Code(s): G40.909 - EPILEPSY, UNSP, NOT INTRACTABLE, WITHOUT STATUS EPILEPTICUS Status: Acute (2) Hypothermia Code(s): T68.XXXA - HYPOTHERMIA, INITIAL ENCOUNTER Status: Resolved Qualifiers: Encounter type: subsequent encounter Qualified Code(s): T68.XXXD - Hypothermia, subsequent encounter (3) Aspiration pneumonia Code(s): J69.0 - PNEUMONITIS DUE TO INHALATION OF FOOD AND VOMIT Status: Acute Qualifiers: Aspiration pneumonia type: unspecified (4) UTI (urinary tract infection) Status: Acute Qualifiers: Urinary tract infection type: acute cystitis Hematuria presence: without hematuria Qualified Code(s): N30.00 - Acute cystitis without hematuria (5) Altered mental status Code(s): R41.82 - ALTERED MENTAL STATUS, UNSPECIFIED Status: Resolved (6) Mental retardation Code(s): F79 - UNSPECIFIED INTELLECTUAL DISABILITIES Status: Chronic (7) Normocytic anemia Code(s): D64.9 - ANEMIA, UNSPECIFIED Status: Chronic (8) Hypoglycemia Code(s): E16.2 - HYPOGLYCEMIA, UNSPECIFIED Status: Resolved - Plan at baseline cognitive status [facility] and is tolerating oral diet from yest evening on keppra and merrem. Will scale it back once cultures are -ve. Is DNAR, d/w Ms.Brenda Olvin robertson over phone (03/03/2019). His parents are , has a living brother who is in [facility] and has intellectual disability per . pt is a snf resident T[place] to med floor, likely dc plan in am if stable
[2019-03-04 12:53] VITALS: BMI 18.7
[2019-03-04] MEDS ORDERED: Sodium Chloride 0.9% 250 ML 250 ML IVPB SCH (15:30)
--- NOTE | 2019-03-04 16:08 | PQF ---
GHULAM,JARRED FROST, LUTHER KHAN MD [id number] [facility]- B05 [id number] CLINICAL DOCUMENTATION IMPROVEMENT CLARIFICATION FORM: ICD-10 Updated PLEASE DO AN ADDENDUM TO THE PROGRESS NOTE WITH ANY DOCUMENTATION UPDATES OR ADDITIONS AND CARRY THROUGH TO DC SUMMARY. THANK YOU. DATE: 03/04/19 ATTN: Dr. Frost Please exercise your independent, professional judgment in responding to the clarification form. Clinical indicators are provided on the bottom of this form for your review Please check appropriate box(es): [ x ] Sepsis due to: aspiration pneumonia and UTI [ ] Sepsis due to UTI [ ] Sepsis due to [ ] Localized infection without sepsis [ ] Other diagnosis [ ] Unable to determine In addition, please specify: Present on Admission (POA): [ x ] Yes [ ] No [ ] Unable to determine For continuity of documentation, please document condition throughout progress notes and discharge summary. Thank You. CLINICAL INDICATORS - SIGNS / SYMPTOMS / LABS / RESULTS AND LOCATION IN 02/28 wbc 12.3, prolactin 3.26 per labs 02/28 rectal temp 94.5 per VS 03/01 Yehuda: "gram neg rods per urine culture" RISK FACTORS / RESULTS AND LOCATION IN Infection/Bacteremia--> 02/28 Yehuda: "UTI, probable aspiration pneumonia" TREATMENTS / RESULTS AND LOCATION IN ICU 02/28 per orders Daily CBC 02/28 to date per orders Blood cultures 03/02 per orders IV antibiotics - broad spectrum--> Zosyn 3.375 gm IV Q6H 02/28-03/02; 03/02 Meropenem 1gm Q8H 03/02-to date; 02/28 Vanc 1gm IV once in ED; Vancomycin 1.25 gm BID 03/02-03/03 per orders IV Fluids--> 02/28 1 liter; 03/01 1 lites NS then D5 NS at 100 02/28-03/02 per orders (This form is maintained as a part of the permanent medical record) 2014 [employer]. All Rights Reserved Alyce Wood RN, BSN, CCDS [email or web address]
--- NOTE | 2019-03-04 16:08 | PQF ---
[place],JARRED FROST, LUTHER KHAN MD [id number] CLINICAL DOCUMENTATION IMPROVEMENT CLARIFICATION FORM: ICD-10 Updated PLEASE DO AN ADDENDUM TO THE PROGRESS NOTE WITH ANY DOCUMENTATION UPDATES OR ADDITIONS AND CARRY THROUGH TO DC SUMMARY. THANK YOU. DATE: 03/04/19 ATTN: Dr. Frost Please exercise your independent, professional judgment in responding to the clarification form. 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 disability and chronic bed bound status at snf [ ] Weakness (please specify anatomical area) Specify: [ ] Non dominant side [ ] Dominant side [ ] Other diagnosis [ ] Unable to determine In addition, please specify: Present on Admission (POA): [ x ] Yes [ ] No [ ] Unable to determine CLINICAL INDICATORS - SIGNS / SYMPTOMS / LABS/ RESULTS AND LOCATION IN MR 03/02 LP: "Total assistance with bathing-2 person assist" 03/01 DEH: "RUE, LUE, RLE, LLE rigid contractures" 03/01 Speech therapy ([facility]): "contractures in wheelchair, needing feeder for his baseline" RISK FACTORS / RESULTS AND LOCATION IN MR 02/28 [facility]: "He is severely debiliated and contracted, nonverbal" recurrent seizure with ongoing infection" TREATMENT / RESULTS AND LOCATION IN MR Assisted feedings 03/[address] 03/01 ADLs per hospital policy 02/28 to date per orders (This form is maintained as a part of the permanent medical record) 2014 [employer], [employer]. All Rights Reserved Alyce Wood, RN, BSN, CCDS [email or web address] [phone] MTDD
[2019-03-04] MEDS: Latanoprost 0.005% Ophth Soln 2.5 ml Bottle EA EYE SCH (20:17)
[2019-03-04] MEDS ORDERED: levETIRAcetam 500 MG TAB PO SCH (21:00)
[2019-03-04] MEDS: levETIRAcetam 500 mg/5 ml Oral Solution PO SCH (22:08)
[2019-03-05] MEDS: MEROPENEM 1 GM/50 ML 1 GM in Premix Bag 1 BAG IVPB SCH (05:26)
[2019-03-05] MEDS ORDERED: Potassium Chloride 20 MEQ TAB PO SCH (05:30)
[2019-03-05 07:12] VITALS: TEMP 98.5
[2019-03-05 08:11] LABS: #Basophils 0.1 thou/uL (0.0-0.2); #Eosinphils 0.2 thou/uL (0.0-0.7); #Lymphocytes 2.2 thou/uL (1.20-3.40); #Monocytes 0.3 thou/uL (0.11-0.59); %Basophils 1.5 % (0.0-1.0); %Eosinophils 2.7 % (0.0-10.0); %Lymphocytes 38.4 % (21.0-51.0); %Monocytes 5.8 % (0.0-10.0); %Neutrophils 51.7 % (42.0-75.0); Hemoglobin 9.8 g/dL (14.0-18.0); Mean Corpuscular Hemoglobin 27.9 pg (27.0-31.0); Mean Corpuscular Volume 87.1 fL (78.0-98.0); Mean Platelet Volume 9.3 fL (7.4-10.4); Platelet Count 164 thou/uL (130-400); Red Blood Cell (RBC) Count 3.51 mill/uL (4.70-6.10); White Blood Cell (WBC) Count 5.8 thou/uL (4.8-10.8)
[2019-03-05 08:28] LABS: Anion Gap 8 mmol/L (10-20); BUN (Urea Nitrogen) 9 mg/dL (8.4-25.7); Calc. Creatinine Clearance 113 mL/min (70-130); Calcium 8.5 mg/dL (7.8-10.44); Carbon Dioxide 33 mmol/L (23-31); Chloride 102 mmol/L (98-107); Estimated GFR-MDRD Greater than 90; Glucose 68 mg/dL (80-115); Potassium 4.7 mmol/L (3.5-5.1); Sodium 138 mmol/L (136-145)
[2019-03-05] MEDS: Famotidine 20 MG TAB PO SCH (08:33)
[2019-03-05] MEDS: levETIRAcetam 500 mg/5 ml Oral Solution PO SCH (08:33)
[2019-03-05] MEDS: DorzolamidE/Timolol 2%/0.5% Ophth Soln 10 ml Bottle EA EYE SCH (08:35)
[2019-03-05] MEDS: Enoxaparin Sodium 40 MG/0.4 ML SYRINGE SC SCH (08:36)
[2019-03-05 11:25] VITALS: BP 106/73
--- NOTE | 2019-03-05 12:10 | PDOC.HOSPP ---
- Subjective Encounter Date: 03/05/19 Encounter Time: 08:00 Subjective: awake, tries to talk a few words which are not comprehensible eating well per staff - Objective Vital Signs & Weight: Vital Signs (12 hours) Temp Pulse Resp BP BP Pulse Ox 03/05/19 11:19 98.5 F 89 16 106/73 92 L 03/05/19 08:31 99 03/05/19 07:06 98.5 F 84 17 105/72 99 03/05/19 04:00 97.5 F L 87 18 98 Weight Admit Weight 138 lb 1.6 oz Weight 135 lb 2 oz Most Recent Monitor Data Heart Rate from ECG 62 NIBP 88/56 NIBP BP-Mean 66 Respiration from ECG 12 SpO2 100 I&O: 03/04/19 03/05/19 03/06/19 06:59 06:59 06:59 Intake Total 1350 440 Output Total 1500 900 Balance -150 -460 Result Diagrams: 03/05/19 07:34 03/05/19 07:34 Additional Labs: Accuchecks 03/05/19 03/05/19 03/04/19 11:25 05:22 19:28 POC Glucose 87 88 90 03/04/19 03/04/19 03/04/19 16:35 15:30 12:24 POC Glucose 85 83 86 Hospitalist ROS - Medication Medications: Active Medications Generic Name Dose Route Start Last Admin Trade Name Freq PRN Reason Stop Dose Admin Dorzolamide/Timolol 0 drop 03/02/19 21:00 03/05/19 08:35 Cosopt 2-0.5% Ophth Soln EA EYE 1 drop BID FRANCHESCA Administration Enoxaparin Sodium 40 mg 03/01/19 09:00 03/05/19 08:36 Lovenox SC 40 mg 0900 FRANCHESCA Administration Famotidine 20 mg 02/28/19 21:00 03/05/19 08:33 Pepcid PO 20 mg BID FRANCHESCA Administration Meropenem 1 gm/ Device 50 mls @ 100 mls/hr 03/02/19 22:00 03/05/19 05:26 IVPB 50 mls Q8HR FRANCHESCA Administration Latanoprost 1 drop 03/02/19 21:00 03/04/19 20:17 Xalatan 0.005% Ophth Soln EA EYE 1 drop HS FRANCHESCA Administration Levetiracetam 500 mg 03/04/19 21:00 03/05/19 08:33 Keppra Oral Solution PO 500 mg BID FRANCHESCA Administration - Exam General Appearance: awake alert Eye: PERRL, anicteric sclera ENT: no oropharyngeal lesions, moist mucosa Neck: supple, no JVD Heart: RRR, no murmur Respiratory: no wheezes, no rales Gastrointestinal: soft, non-tender, non-distended, normal bowel sounds Extremities: no cyanosis, no edema Extremities - other findings: flexion contractures Neurological: cranial nerve grossly intact, no focal deficits Hosp A/P (1) Seizure disorder Code(s): G40.909 - EPILEPSY, UNSP, NOT INTRACTABLE, WITHOUT STATUS EPILEPTICUS Status: Acute (2) Hypothermia Code(s): T68.XXXA - HYPOTHERMIA, INITIAL ENCOUNTER Status: Resolved Qualifiers: Encounter type: subsequent encounter Qualified Code(s): T68.XXXD - Hypothermia, subsequent encounter (3) Aspiration pneumonia Code(s): J69.0 - PNEUMONITIS DUE TO INHALATION OF FOOD AND VOMIT Status: Acute Qualifiers: Aspiration pneumonia type: unspecified (4) UTI (urinary tract infection) Status: Acute Qualifiers: Urinary tract infection type: acute cystitis Hematuria presence: without hematuria Qualified Code(s): N30.00 - Acute cystitis without hematuria (5) Altered mental status Code(s): R41.82 - ALTERED MENTAL STATUS, UNSPECIFIED Status: Resolved (6) Mental retardation Code(s): F79 - UNSPECIFIED INTELLECTUAL DISABILITIES Status: Chronic (7) Normocytic anemia Code(s): D64.9 - ANEMIA, UNSPECIFIED Status: Chronic (8) Hypoglycemia Code(s): E16.2 - HYPOGLYCEMIA, UNSPECIFIED Status: Resolved - Plan at baseline cognitive status [facility] and is tolerating oral diet from yest evening on keppra cipro for dc plan. Is DNAR, d/w Ms.Brenda Olvin robertson over phone (03/03/2019). His parents are , has a living brother who is in [facility] and has intellectual disability per . D/w Ms.Brenda Bah today at bedside, gave full updates. DC plan to snf today
--- NOTE | 2019-03-06 10:53 | DIS ---
DATE OF ADMISSION: 02/28/2019 DATE OF DISCHARGE: 03/05/2019 DISCHARGE DISPOSITION: [facility]. PRIMARY DISCHARGE DIAGNOSES: New onset seizure, resolved; hypoglycemia of unclear etiology, resolved; urinary tract infection, resolving; aspiration pneumonia, resolved; hypothermia on admission, resolved; acute metabolic encephalopathy secondary to seizures and infections, currently at baseline cognitive status; history of intellectual disability; and chronic anemia. PROCEDURES DONE DURING HOSPITALIZATION: CT chest, abdomen, and pelvis done on 03/02/2019 showed right upper lobe infiltrate and left mid lung field infiltrate as well. Blood cultures x2, no growth. Urine culture grew E coli sensitive to all antibiotics except Macrobid. Influenza A and B antigens were negative. Discharge white count of 5.8, H and H 10 and 30, platelet count 164. The patient's serum glucose dipped down to 15 mg/dL on the and has remained normal after that. Urine drug screen was negative. INPATIENT CONSULTS: 1. Dr. Lacy for Pulmonology. 2. Dr. Noonan for Neurology. DISCHARGE MEDICATIONS: 1. Ferrous sulfate 325 mg p.o. daily. 2. Ciprofloxacin 500 mg p.o. twice daily for another 5 days. 3. Pepcid 20 mg twice daily. 4. Keppra 500 mg p.o. twice daily. 5. Dorzolamide with timolol and Lumigan eye drops as before. ALLERGIES: NO KNOWN DRUG ALLERGIES. DISCHARGE PLAN: The patient to follow up with his primary care physician at the [facility], Dr. Vaughn, in 1 week. BRIEF COURSE DURING HOSPITALIZATION: The patient initially was sent over from [facility] as he was found unresponsive. The patient has had initial workup done, which revealed aspiration pneumonia with UTI. He also has underlying intellectual disability and was obtunded on arrival. The patient apparently had seizure-like activity in the [facility]. He had a total of 3 seizures at the [facility], lasting 20 to 30 seconds and one more episode en route in the ambulance, but none after that. He was hypothermic and had hypoglycemia as well. The patient's mental status took nearly 3 days to come back to his baseline. Prior to discharge, he is tolerating oral mechanical soft diet. His serum sugars have been normal. He was on D10 and later D20 IV to bring his sugars up on the and during the hospitalization, but from and , he has been off the drips and is at his baseline cognitive status and eating well. During the course of his stay, his POA, Ms. Beti Bah, was given updates. He is also a do not attempt to resuscitate. Please see a [id number] documentation for the day [facility]. A total of 35 minutes was spent on discharge plan. Job ID: [id number]
== END 2019-03-05 13:09 | DRG 871 ==
LOC: ERS 06:17 → ERHOLD 08:12 → 2SE 15:40 → CCU 22:28 → 2SE 03-01 12:27 → IMCU/EMU 03-02 17:45 → T4-A 03-04 16:00
PROVIDERS: ADMIT Internal Medicine; ATTEND Internal Medicine
DX: A41.9 Sepsis, unspecified organism (principal); J69.0 Pneumonitis due to inhalation of food and vomit; R53.2 Functional quadriplegia; N30.00 Acute cystitis without hematuria; R47.01 Aphasia; G40.909 Epilepsy, unspecified, not intractable, without status epilepticus; F79 Unspecified intellectual disabilities; D64.9 Anemia, unspecified; E16.2 Hypoglycemia, unspecified; T68.XXXA Hypothermia, initial encounter; E78.5 Hyperlipidemia, unspecified
CPT/HCPCS: 36415; 36416; 71260; 74177; 80048; 80202; 82533; 82550; 82607; 82728; 82746; 83540; 83550; 83605; 83735; 84100; 84146; 84439; 84443; 84481; 85025; 87040; 95816; 95819; 96361; 96365; A4217; J1650; J1953; J2185; J2543; J2920; J3370; J3480; J3490; J7050

== ENCOUNTER 2019-03-31 18:15 | Observation (INO) | payer MEDICARE, MEDICAID ==
[~2019-03-31 18:15] MED LIST: Iopamidol-370 76% 500 ML 1 ML ONE
[2019-03-31 19:45] LABS: Bilirubin Negative (Negative); Blood, Urine Negative (Negative); Clarity Clear (Clear); Glucose, Urine (Dipstick) Normal (Negative); Leukocyte Negative Leu/uL (Negative); Nitrite Negative (Negative); Protein, Urine (Dipstick) 20 mg/dL (Neg-Trace); Urobilinogen Normal mg/dL (Less than 2)
--- NOTE | 2019-03-31 19:46 | CT ---
CT BRAIN NONCONTRAST: DATE: 03/31/2019 HISTORY: 63-year-old male with altered mental status and dysarthria, plus lethargy. COMPARISON: 02/28/2019 FINDINGS: There is no evidence of acute intra-axial or extra-axial hemorrhage. There is no midline shift or any other mass effect. There is no extra-axial fluid collection. There is no evidence of obstructive hydrocephalus. Calvarium is intact. There is a new finding of moderate-severe mucosal thickening thro ughout the bilateral ethmoid air cells and bilateral maxillary sinuses. Total opacification of most of the bilateral ethmoid air cells except the posterior ethmoid air cells. Frontal sinuses are nonpne umatized. Bilateral middle ear cavities and mastoid air cells are grossly clear. Small focal left frontal scalp swelling. IMPRESSION: 1. No acute intracranial findings. 2. Diffuse mucosal disease of paranasal sinuses.
[2019-03-31 20:14] LABS: #Lymphocytes 1.2 thou/uL (1.20-3.40); #Monocytes 0.5 thou/uL (0.11-0.59); #Neutrophils 6.3 thou/uL (1.40-6.50); %Basophils 0.1 % (0.0-1.0); %Eosinophils 0.3 % (0.0-10.0); %Lymphocytes 14.6 % (21.0-51.0); %Monocytes 5.6 % (0.0-10.0); %Neutrophils 79.4 % (42.0-75.0); Hemoglobin 11.3 g/dL (14.0-18.0); Mean Corpuscular Hemoglobin 28.3 pg (27.0-31.0); Mean Corpuscular Volume 85.6 fL (78.0-98.0); Mean Platelet Volume 9.1 fL (7.4-10.4); Platelet Count 256 thou/uL (130-400); RBC Distribution Width 14.3 % (11.5-14.5); Red Blood Cell (RBC) Count 4.01 mill/uL (4.70-6.10)
--- NOTE | 2019-03-31 20:30 | RAD ---
RADIOGRAPH CHEST 1 VIEW: DATE: 03/31/2019 TIME: 7:54 PM HISTORY: 63-year-old male with fever. Suspected aspiration pneumonia. COMPARISON: 02/28/2019 FINDINGS: The previously demonstrated right-sided infiltrate has resolved. Currently, the lungs are clear. Card iomediastinal silhouette is normal. Lateral costophrenic angles are sharp. Left apex is excluded from the [id number]. No moderate sized or large pneumothorax is identified. There is a new finding of expansion of the right lower lobe, especially the right lateral costophrenic angle, with hyperlucency of the right lower lung zone resulting in deep right sulcus. IMPRESSION: 1) interval development of hyperlucency and hyperexpansion of lateral base of right lower lobe. Etiol ogy is uncertain, but one possibility is segmental air trapping at the right lower lobe. 2) no infiltrate
[2019-03-31 20:35] LABS: ALT (SGPT) 13 U/L (8-55); AST (SGOT) 30 U/L (5-34); Albumin 3.6 g/dL (3.4-4.8); Alkaline Phosphatase 123 U/L (40-110); Anion Gap 13 mmol/L (10-20); BUN (Urea Nitrogen) 17 mg/dL (8.4-25.7); Bilirubin, Total 0.4 mg/dL (0.2-1.2); Calc. Creatinine Clearance 0 mL/min (70-130); Calcium 9.1 mg/dL (7.8-10.44); Carbon Dioxide 24 mmol/L (23-31); Chloride 94 mmol/L (98-107); Estimated GFR-MDRD Greater than 90; Globulin 4.1 g/dL (2.4-3.5); Glucose 86 mg/dL (80-115); Potassium 4.2 mmol/L (3.5-5.1); Protein, Total 7.7 g/dL (5.8-8.1); Sodium 127 mmol/L (136-145)
--- NOTE | 2019-03-31 22:47 | CT ---
CT ANGIOGRAM THORAX WITH CONTRAST: (CTA pulmonary angiogram) DATE: 03/31/2019 HISTORY: 63-year-old male with altered mental status. Concern for aspiration. TECHNIQUE: IV injection of iodinated contrast. Scan acquisition timing attempted to coincide with iodinated contrast bolus reaching maximal density in pulmonary arteries. 3-D MIP reconstructions. FINDINGS: Pulmonary thromboembolism: None. Lungs: Clear. Pneumothorax: None. Pleural effusion: None. No cardiomegaly. No thoracic aortic aneurysm or dissection. No mediastinal or hilar lymphadenopathy. The right lobe of the liver now appears thin, and flat in the craniocaudal dimension, especially its posterior aspect, which is a new finding compared to CT of 03/02/2019. Perhaps this is due to shift of the liver to the left side of the abdominal cavity because of left lateral decubitus positioning d uring this CT scan. This results in expansion of the right lower lobe lung. The previously seen right-sided infiltrates have resolved. IMPRESSION: 1. No pulmonary thromboembolism. 2. No intrathoracic active disease. 3. The expansion of the right lower lobe lung is due to the fact that the right lobe of liver appears thin in the craniocaudal dimension. Perhaps this is due to left lateral decubitus positioning.
[2019-03-31] MEDS ORDERED: Cefepime 2 GM VIAL ONE (23:22)
[2019-03-31] MEDS ORDERED: Ondansetron PF 4 MG/2 ML Vial IVP PRN (23:30)
[2019-03-31] MEDS ORDERED: Bisacodyl 10 MG SUPP PR PRN (23:30)
[2019-03-31] MEDS ORDERED: Acetaminophen 325 MG TAB PO PRN (23:30)
[2019-03-31] MEDS ORDERED: Vancomycin HCl 1 GM in Premix Bag 1 BAG IVPB SCH (23:45)
--- NOTE | 2019-04-01 00:33 | HP ---
PRIMARY CARE PROVIDER: Dr. Analisa Vaughn. CHIEF COMPLAINT: Lethargy. HISTORY OF PRESENT ILLNESS: Mr. Hernandez is a 63-year-old gentleman, who was seen at [facility] on March 31, 2019, following transfer from [facility]. The patient is unable to provide any history. Collateral history was obtained from discussion with patient's cousin, Giselle Segovia over the telephone, review of medical records, and discussion with emergency room physician. Mr. Hernandez has contractures in all 4 extremities. His cousin reports that he occasionally talks, but it is difficult to understand him. Today, he was reportedly lethargic. half-way staff also suspected that he may have had a seizure. He was sent to the emergency room. In the emergency room, he had a fever, but there was no clear source of infection. He was started on cefepime and vancomycin and referred to Hospitalist Service for admission. Please note that he was hospitalized at this facility from February 28 to 2018, for new onset seizure, hypoglycemia of unclear etiology, urinary tract infection, and aspiration pneumonia. REVIEW OF SYSTEMS: Could not be completed secondary to patient's cognitive status. PAST MEDICAL HISTORY: Chronic anemia, mental retardation, and recently diagnosed seizure disorder. SURGICAL HISTORY: Unknown. ALLERGIES: UNKNOWN. CURRENT MEDICATIONS: 1. Famotidine 20 mg 2 times a day. 2. Iron tablet one tablet daily. 3. Levetiracetam 500 mg 2 times a day. 4. Remeron 15 mg daily. 5. Tylenol Extra Strength p.r.n. 6. Pro-Stat 30 mL two times a day. 7. Timolol/dorzolamide eyedrops one drop to both eyes at bedtime. 8. Lumigan eye drops one drop to both eyes at bedtime. PHYSICAL EXAMINATION: GENERAL: On examination, Mr. Correia is sleepy. VITAL SIGNS: Blood pressure is 105/61, pulse 88, respiratory rate 16, and oxygen saturation 100% on room air. His rectal temperature was 100.3 degrees Fahrenheit, when he initially presented to the emergency room. EYES: No conjunctival pallor. ENT: Dry mucosal membranes, no oropharyngeal erythema. NECK: Nontender, trachea midline. RESPIRATORY: Accessory muscles of breathing are not active. Chest wall movements are symmetric bilaterally. Lungs are clear to auscultation without wheeze, rhonchi, or crepitations. CARDIOVASCULAR: S1 and S2 are heard, regular. Peripheral pulses palpable. ABDOMEN: Soft, nontender, bowel sounds heard. NEUROLOGIC: Could not do a thorough neurologic examination secondary to patient's noncooperation. There is no facial droop. MUSCULOSKELETAL: Contractures in all 4 extremities. SKIN: No rashes. LYMPHATIC: No cervical lymphadenopathy. PSYCHIATRIC: Unable to assess mood; orientation to person, place, or time; or affect. LABORATORY DATA: Mr. Hernandez' labs and investigations were reviewed. He has normal white count, normocytic anemia with hemoglobin 11.3, normal platelet count, decreased sodium of 127, normal potassium, elevated alkaline phosphatase of 123, otherwise unremarkable LFTs and normal lactic acid level of 1.1. Urinalysis is positive for ketones, negative for nitrite and leukocyte esterase. ASSESSMENT AND PLAN: Mr. Hernandez is a 63-year-old gentleman, who was seen at [facility] on March 31, 2019. His problem list includes: 1. Fever: Etiology is unclear. Influenza screen was negative in the emergency room. He received intravenous vancomycin and cefepime, and blood cultures have been sent. He will be admitted to the hospital on observation status for further management. 2. Hyponatremia: Etiology is unclear. We will provide gentle hydration and recheck sodium level. 3. Seizure disorder: We will continue Keppra. 4. Code status was discussed with his cousin. The patient is DNAR. Many thanks for allowing me to participate in your patient's care. Please feel free to contact me with any questions or concerns. We will add TSH to the blood in the lab to rule out hyperthyroidism as a cause of his fever. LEVEL OF RISK: Moderate. LEVEL OF COMPLEXITY: Moderate. Job ID: [id number]
[2019-04-01 01:06] VITALS: BMI 20.9
[2019-04-01] MEDS: Sodium Chloride 0.9% 1,000 ML IV SCH ×2 (01:09→13:16)
[2019-04-01 04:26] LABS: Anion Gap 11 mmol/L (10-20); BUN (Urea Nitrogen) 14 mg/dL (8.4-25.7); Calc. Creatinine Clearance 99 mL/min (70-130); Calcium 8.2 mg/dL (7.8-10.44); Carbon Dioxide 21 mmol/L (23-31); Chloride 100 mmol/L (98-107); Estimated GFR-MDRD Greater than 90; Glucose 75 mg/dL (80-115); Potassium 3.8 mmol/L (3.5-5.1); Sodium 128 mmol/L (136-145)
[2019-04-01 04:38] LABS: #Basophils 0.1 thou/uL (0.0-0.2); #Eosinphils 0.1 thou/uL (0.0-0.7); #Lymphocytes 1.6 thou/uL (1.20-3.40); #Monocytes 0.5 thou/uL (0.11-0.59); #Neutrophils 4.5 thou/uL (1.40-6.50); %Basophils 0.9 % (0.0-1.0); %Lymphocytes 23.2 % (21.0-51.0); %Monocytes 7.9 % (0.0-10.0); Hemoglobin 9.9 g/dL (14.0-18.0); Mean Corpuscular Hemoglobin 27.6 pg (27.0-31.0); Mean Corpuscular Volume 86.1 fL (78.0-98.0); Mean Platelet Volume 9.4 fL (7.4-10.4); Platelet Count 203 thou/uL (130-400); RBC Distribution Width 14.5 % (11.5-14.5); Red Blood Cell (RBC) Count 3.59 mill/uL (4.70-6.10); White Blood Cell (WBC) Count 6.7 thou/uL (4.8-10.8)
[2019-04-01] MEDS ORDERED: Dextromethorphan Polistirex 30 MG/5 ML (89 ML BOTTLE) PO PRN (06:10)
[2019-04-01] MEDS: Enoxaparin Sodium 30 MG/0.3 ML SYRINGE SC SCH (08:45)
[2019-04-01] MEDS: DorzolamidE/Timolol 2%/0.5% Ophth Soln 10 ml Bottle EA EYE SCH ×2 (08:45→19:39)
[2019-04-01] MEDS ORDERED: NETTLE PO SCH (09:00)
[2019-04-01] MEDS ORDERED: [UNRECOGNIZED DRUG - OTHER] PO SCH (09:00)
[2019-04-01] MEDS ORDERED: PUMPKIN PO SCH (09:00)
[2019-04-01] MEDS ORDERED: FLU VACC QS2019-20(6MOS UP)/PF 60 MCG/0.5 ML SYRINGE IM ONE (09:00)
[2019-04-01 09:01] LABS: Sodium 130 mmol/L (136-145)
[2019-04-01] MEDS: Famotidine 20 MG TAB PO SCH ×2 (09:31→19:40)
[2019-04-01] MEDS: Ferrous Sulfate 325 MG TAB PO SCH ×2 (09:32→19:40)
[2019-04-01] MEDS: Cefepime 1 GM in Sodium Chloride 0.9% 100 ML IVPB SCH ×2 (10:48→23:09)
[2019-04-01] MEDS: levETIRAcetam 500 mg/5 ml Oral Solution PO SCH ×2 (11:14→19:39)
[2019-04-01] MEDS: Vancomycin HCl 750 MG in Sodium Chloride 0.9% 250 ML 250 ML IVPB SCH (13:16)
--- NOTE | 2019-04-01 15:18 | PDOC.HOSPP ---
- Subjective Encounter Date: 04/01/19 Encounter Time: 09:00 Subjective: no overnight events. This morning, no change in mental state as he remains responsive to verbal stimuli but is nonverbal. - Objective Vital Signs & Weight: Vital Signs (12 hours) Temp Pulse Resp BP Pulse Ox 04/01/19 11:03 97.7 F 78 16 104/64 100 04/01/19 07:05 100 04/01/19 07:00 97.4 F L 61 12 104/65 100 04/01/19 03:30 97.4 F L 69 18 93/55 L 100 Weight Admit Weight 125 lb 14.4 oz Weight 125 lb 14.4 oz I&O: 03/31/19 04/01/19 04/02/19 06:59 06:59 06:59 Intake Total 350 Balance 350 Result Diagrams: 04/01/19 03:57 04/01/19 08:39 Radiology Reviewed by me: Yes EKG Reviewed by me: Yes Hospitalist ROS - Review of Systems ROS unobtainable: due to mental status - Medication Medications: Active Medications Generic Name Dose Route Start Last Admin Trade Name Freq PRN Reason Stop Dose Admin Dorzolamide/Timolol 1 drop 04/01/19 09:00 04/01/19 08:45 Cosopt 2-0.5% Ophth Soln EA EYE 1 drop BID FRANCHESCA Administration Enoxaparin Sodium 30 mg 04/01/19 09:00 04/01/19 08:45 Lovenox SC 30 mg 0900 FRANCHESCA Administration Famotidine 20 mg 04/01/19 09:00 04/01/19 09:31 Pepcid PO Not Given BID FRANCHESCA Ferrous Sulfate 325 mg 04/01/19 09:00 04/01/19 09:32 Feosol PO Not Given BID FRANCHESCA Sodium Chloride 1,000 mls @ 70 mls/hr 03/31/19 23:59 04/01/19 13:16 Normal Saline 0.9% IV 1,000 mls .[id number] FRANCHESCA Administration Cefepime HCl 1 gm/ Sodium 100 mls @ 200 mls/hr 04/01/19 11:00 04/01/19 10:48 Chloride IVPB 100 mls 1100,2300 FRANCHESCA Administration Vancomycin HCl 750 mg/ Sodium 250 mls @ 250 mls/hr 04/01/19 12:00 04/01/19 13 :16 Chloride IVPB 250 mls 1200,2358 FRANCHESCA Administration Levetiracetam 500 mg 04/01/19 09:00 04/01/19 11:14 Keppra Oral Solution PO 500 mg BID FRANCHESCA Administration - Exam General Appearance: NAD General - other findings: somnolent Eye: PERRL ENT: normocephalic atraumatic, no oropharyngeal lesions, moist mucosa Neck: supple, symmetric, no JVD, no thyromegaly, no lymphadenopathy, no carotid bruit Heart: RRR, no murmur, no gallops, no rubs, normal peripheral pulses Respiratory: CTAB, no wheezes, no rales, no ronchi, normal chest expansion Gastrointestinal: soft, non-tender, non-distended, normal bowel sounds, no palpable masses, no hepatomegaly, no splenomegaly, no bruit Extremities: no edema Extremities - other findings: contractions in all four extremities Skin - other findings: no pressure ulcers appreciated Neurological - other findings: somnolent, could not assess Psychiatric: somnolent Hosp A/P - Plan #fever #somnolence -currently qSOFA 1/3 (mental state) -100.3 rectal recorded in ED -patient more arousable this morning, responds to voice -influenza -ve -BCx, UA -ve -CXR showing no acute process -CT head showing diffuse facial sinuses mucosal disease likely representing sinusitis -has been afebrile since admission -started patient on vanc and cefepime -NS IVF #chronic hypotonic hyponatremia -likely due to volume contraction -will correct with conservative NS, send urine lytes check Na periodically -goal Na 132-134 in AM lab #seizure -no reported seizure activity -will continue keppra DVT prophylaxis: enoxeparin code status: DNAR
[2019-04-01 17:24] LABS: Sodium 132 mmol/L (136-145)
[2019-04-01] MEDS ORDERED: Dextrose 50% Abboject 50 ML SYRINGE SLOW IVP PRN (20:27)
[2019-04-01] MEDS ORDERED: Dextrose 5% in Water 1,000 ML IV PRN (20:27)
[2019-04-01] MEDS ORDERED: Latanoprost 0.005% Ophth Soln 2.5 ml Bottle EA EYE SCH (21:00)
[2019-04-02] MEDS: Vancomycin HCl 750 MG in Sodium Chloride 0.9% 250 ML 250 ML IVPB SCH ×2 (00:21→11:51)
[2019-04-02 04:22] LABS: #Eosinphils 0.1 thou/uL (0.0-0.7); #Lymphocytes 1.2 thou/uL (1.20-3.40); #Monocytes 0.4 thou/uL (0.11-0.59); #Neutrophils 4.8 thou/uL (1.40-6.50); %Basophils 0.2 % (0.0-1.0); %Eosinophils 1.6 % (0.0-10.0); %Lymphocytes 17.9 % (21.0-51.0); %Monocytes 5.5 % (0.0-10.0); %Neutrophils 74.8 % (42.0-75.0); Mean Corpuscular HGB CONC 33.1 g/dL (32.0-36.0); Mean Corpuscular Volume 87.5 fL (78.0-98.0); Mean Platelet Volume 8.8 fL (7.4-10.4); Platelet Count 195 thou/uL (130-400); RBC Distribution Width 14.3 % (11.5-14.5); Red Blood Cell (RBC) Count 3.09 mill/uL (4.70-6.10); White Blood Cell (WBC) Count 6.5 thou/uL (4.8-10.8)
[2019-04-02 04:44] LABS: Anion Gap 9 mmol/L (10-20); BUN (Urea Nitrogen) 14 mg/dL (8.4-25.7); Calc. Creatinine Clearance 107 mL/min (70-130); Carbon Dioxide 21 mmol/L (23-31); Chloride 107 mmol/L (98-107); Estimated GFR-MDRD Greater than 90; Magnesium 1.9 mg/dL (1.6-2.6); Potassium 3.4 mmol/L (3.5-5.1); Sodium 134 mmol/L (136-145)
[2019-04-02 04:47] LABS: Glucose 53 mg/dL (80-115)
[2019-04-02] MEDS ORDERED: Dextrose 50 % In Water 50 ML SYRINGE ONE (05:12)
[2019-04-02] MEDS: Sodium Chloride 0.9% 1,000 ML IV SCH (05:35)
[2019-04-02] MEDS ORDERED: Dextrose 5 % And 0.9 % NaCl 1,000 ML IV SCH (07:15)
[2019-04-02] MEDS: DorzolamidE/Timolol 2%/0.5% Ophth Soln 10 ml Bottle EA EYE SCH (10:14)
[2019-04-02] MEDS: levETIRAcetam 500 mg/5 ml Oral Solution PO SCH (10:14)
[2019-04-02] MEDS: Enoxaparin Sodium 30 MG/0.3 ML SYRINGE SC SCH (10:14)
[2019-04-02] MEDS: Famotidine 20 MG TAB PO SCH (10:36)
[2019-04-02] MEDS: Ferrous Sulfate 325 MG TAB PO SCH (10:38)
[2019-04-02] MEDS: Cefepime 1 GM in Sodium Chloride 0.9% 100 ML IVPB SCH (12:11)
[2019-04-02 15:18] VITALS: BP 105/64; TEMP 97.6
--- NOTE | 2019-04-03 14:21 | DIS ---
DATE OF ADMISSION: 04/01/2019 DATE OF DISCHARGE: 04/02/2019 HOSPITAL COURSE: Mr. Hernandez is a 63-year-old male, who was transferred from [facility] for somnolence. At the time of presentation, the patient was nonverbal. Per the prison staff, he may have had a seizure and he became lethargic. In the emergency room, he developed borderline fever, so he was started on cefepime and vancomycin after infectious workup was conducted. Of note, the patient was hospitalized in February and was diagnosed with hypoglycemia of unclear etiology. During the current hospitalization, infectious workup was negative, but the patient was found to have hypoglycemia. After initiating fluids with dextrose, the patient's somnolence improved and was back to baseline. He was diagnosed with hypoglycemia most likely due to reduced oral intake. Prior to discharge, he was assessed by speech and swallow team. The speech and swallow team recommended dysphagic diet. The patient discharged back to [facility] with explicit information regarding the diagnosis and how to prevent the diagnosis from recurring. PHYSICAL EXAMINATION: VITAL SIGNS: Unremarkable. GENERAL: The patient was in no apparent distress. He was alert, but orientation cannot be assessed because he is nonverbal at baseline due to severe mental retardation. CARDIAC: Regular rate and rhythm. No gallops or murmurs. LUNGS: Clear to auscultation bilaterally. No rales, rhonchi, or wheezing. No tachypnea. No use of accessory muscles. ABDOMEN: No tenderness. Soft and nondistended. Normal bowel sounds. EXTREMITIES: No edema. No lesions. NEUROLOGIC: The patient is nonverbal at baseline cranial nerves. MUSCULOSKELETAL: The patient has contractures in all four extremities. PSYCHIATRIC: The patient is alert, not agitated, response to vocal stimuli. ASSESSMENT AND PLAN: 1. Mr. Hernandez is a 63-year-old with severe mental retardation, who presented with lethargy and possible seizure due to hypoglycemia. The hypoglycemia is most likely due to reduced oral intake. After infectious workup was negative, the patient was started on fluids containing dextrose, and his somnolence and responsiveness improved. The patient [facility] with explicit instructions on how to avoid recurrence of hypoglycemia and explicit instructions on what food to feed the patient. 2. Chronic hypotonic hyponatremia, likely due to volume contraction. The patient's hyponatremia was corrected using conservative normal saline with D5W. On the day of discharge, the patient's sodium was at baseline levels. 3. Seizure. No reported seizure activity during inpatient stay. We will continue Keppra. We will advise primary care physician to reassess the necessity of Keppra considering possible diagnosis of . Job ID: [id number]
== END 2019-04-02 17:05 ==
LOC: ERS 18:15 → 2NO 04-01 00:38
PROVIDERS: ADMIT Internal Medicine; ATTEND Internal Medicine
DX: E16.2 Hypoglycemia, unspecified (principal); R50.9 Fever, unspecified; F79 Unspecified intellectual disabilities; E87.1 Hypo-osmolality and hyponatremia; G40.909 Epilepsy, unspecified, not intractable, without status epilepticus; Z79.899 Other long term (current) drug therapy; Z66 Do not resuscitate
CPT/HCPCS: 51701; 70450; 71045; 71275; 80048 ×2; 80053; 81003; 82436; 82962 ×2; 83605; 83735; 83930; 83935; 84295; 84300; 84443; 85025 ×3; 87040; 87086; 87804 ×2; 96361 ×2; 96365; 96367; 96372 ×2; 96375; 96376 ×2; 97139; 99285; G0378 ×4; 36415; 36416; J0692; J1650; J3370; J3490; J7050; Q9967